=== PATIENT | female | born 1995 | race Caucasian/White ===

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

== ENCOUNTER 2017-01-22 00:57 | Emergency (ER) | payer MEDICAID ==
[~2017-01-22] VITALS: Ht 160 cm; Wt 53.1 kg
[2017-01-22 03:34] LABS: BASOPHIL % 0.1 % (0-2); PLATELET COUNT 193 x10^3mcL (130-400)
[2017-01-22 03:35] LABS: microscopic required? YES; urine erythrocyte NEGATIVE (NEGATIVE)
[2017-01-22 03:39] LABS: CALCIUM 9.1 mg/dL (8.5-10.1); CARBON DIOXIDE 25.9 mmol/L (21-32); CHLORIDE SERUM 103 mmol/L (98-107); CREATININE SERUM 0.5 mg/dL (0.6-1.0); GFR1 > 60 mL/min; GLUCOSE SERUM 99 mg/dL (74-106); POTASSIUM SERUM 3.6 mmol/L (3.5-5.1); SODIUM SERUM 138 mmol/L (136-145)
[2017-01-22 03:44] LABS: ALBUMIN 3.7 g/dL (3.4-5.0); ALKALINE PHOSPHATASE 65 U/L (46-116); ALT/SGPT 15 U/L (14-59); AST/SGOT 15 U/L (15-37); TOTAL PROTEIN, SERUM 7.1 g/dL (6.4-8.2)
[2017-01-22 05:44] VITALS: BP 116/77
== END 2017-01-22 05:44 | disposition home or self-care (01) ==
LOC: ED 00:57
PROVIDERS: Emergency Medicine
DX: O20.0 Threatened abortion (principal); Z3A.08 8 weeks gestation of pregnancy; G43.909 Migraine, unspecified, not intractable, without status migrainosus

== ENCOUNTER 2017-03-17 19:48 | Emergency (ER) | payer MEDICAID ==
[2017-03-17 21:20] LABS: BASOPHIL % 0.3 % (0-2); PLATELET COUNT 223 x10^3mcL (130-400); RED CELL DISTRIBUTION WIDTH 14.1 % (11.5-14.5)
[2017-03-17 21:20] LABS: UA SPECIFIC GRAVITY >=1.030 (1.005-1.035); microscopic required? YES; urine erythrocyte 3+ (NEGATIVE)
[2017-03-17 22:33] VITALS: BP 127/71
[2017-03-19 04:19] LABS: RAPID PLASMA REAGIN Non Reactive (Non Reactive)
== END 2017-03-17 22:33 | disposition home or self-care (01) ==
LOC: ED 19:48
PROVIDERS: Emergency Medicine
DX: O03.9 Complete or unspecified spontaneous abortion without complication (principal); G43.909 Migraine, unspecified, not intractable, without status migrainosus
CPT/HCPCS: 36415; 87491; 87591; J0696; J1885; Q0162

== ENCOUNTER 2017-04-06 10:55 | Emergency (ER) | payer MEDICAID ==
[~2017-04-06] VITALS: Ht 157.5 cm; Wt 50.0 kg
[2017-04-06 13:51] LABS: CALCIUM 9.1 mg/dL (8.5-10.1); CARBON DIOXIDE 26.4 mmol/L (21-32); CHLORIDE SERUM 106 mmol/L (98-107); CREATININE SERUM 0.6 mg/dL (0.6-1.0); GFR1 > 60 mL/min; GLUCOSE SERUM 87 mg/dL (74-106); POTASSIUM SERUM 3.7 mmol/L (3.5-5.1); SODIUM SERUM 140 mmol/L (136-145)
[2017-04-06 13:52] LABS: BASOPHIL % 0.4 % (0-2); PLATELET COUNT 275 x10^3mcL (130-400); RED CELL DISTRIBUTION WIDTH 13.5 % (11.5-14.5)
[2017-04-06 14:07] LABS: ALBUMIN 3.4 g/dL (3.4-5.0); ALKALINE PHOSPHATASE 68 U/L (46-116); ALT/SGPT 17 U/L (14-59); AMYLASE 39 U/L (25-115); AST/SGOT 14 U/L (15-37); BILIRUBIN TOTAL 0.4 mg/dL (0.20-1.00); LIPASE 98 IU/L (73-393); TOTAL PROTEIN, SERUM 7.5 g/dL (6.4-8.2)
[2017-04-06 16:10] VITALS: BP 108/65
== END 2017-04-06 16:10 | disposition home or self-care (01) ==
LOC: ED 10:55
PROVIDERS: Emergency Medicine
DX: K52.9 Noninfective gastroenteritis and colitis, unspecified (principal); N83.201 Unspecified ovarian cyst, right side; G43.909 Migraine, unspecified, not intractable, without status migrainosus
CPT/HCPCS: 83880; 87046; 87046-59; J7030

== ENCOUNTER 2017-04-28 09:11 | Inpatient (IN) | payer MEDICAID ==
[~2017-04-28] VITALS: Ht 160 cm; Wt 72.6 kg
[2017-04-28 11:00] LABS: PLATELET COUNT 222 x10^3mcL (130-400); RED CELL DISTRIBUTION WIDTH 13.1 % (11.5-14.5)
[2017-04-28 11:13] LABS: CALCIUM 8.9 mg/dL (8.5-10.1); CARBON DIOXIDE 21.2 mmol/L (21-32); CHLORIDE SERUM 103 mmol/L (98-107); CREATININE SERUM 0.7 mg/dL (0.6-1.0); GFR1 > 60 mL/min; GLUCOSE SERUM 117 mg/dL (74-106); POTASSIUM SERUM 3.4 mmol/L (3.5-5.1); SODIUM SERUM 137 mmol/L (136-145)
[2017-04-28 11:17] LABS: ALBUMIN 3.5 g/dL (3.4-5.0); ALKALINE PHOSPHATASE 66 U/L (46-116); ALT/SGPT 16 U/L (14-59); AST/SGOT 16 U/L (15-37); LIPASE 80 IU/L (73-393); TOTAL PROTEIN, SERUM 7.4 g/dL (6.4-8.2)
[2017-04-28 11:24] LABS: BAND NEUTROPHIL 6 % (0-10); MONOCYTE 2 % (0-7); SEGMENTED NEUTROPHILS 90 % (37-75); rbc morphology (normal/abnorm) NORMAL (NORMAL)
[2017-04-28 14:53] LABS: MAGNESIUM 1.8 mg/dL (1.8-2.4); PHOSPHOROUS 2.8 mg/dL (2.5-4.9)
[2017-04-28 15:00] LABS: FREE T4 1.09 ng/dL (0.76-1.46); FREE THYROXINE INDEX 2.7 ug/dL (1.4-4.5); T4(THYROXINE) 7.5 ug/dL (4.7-13.3)
[2017-04-28 15:09] LABS: T3 TOTAL 0.8 ng/mL
[2017-04-28 15:13] LABS: CHOLESTEROL/HDL RATIO 2.3
[2017-04-28 15:48] VITALS: BP 122/79
[2017-04-28 15:50] VITALS: Ht 160 cm; Wt 72.6 kg
[2017-04-28 18:39] VITALS: BP 112/63
[2017-04-28 21:53] VITALS: BP 94/47
[2017-04-28 22:04] VITALS: BP 100/54
[2017-04-29 03:36] LABS: UA SPECIFIC GRAVITY 1.015 (1.005-1.035); microscopic required? YES; urine erythrocyte TRACE (NEGATIVE)
[2017-04-29 03:43] LABS: AMPHETAMINE QUAL UR NONE DETECTED (NEG <=1000)
[2017-04-29 06:35] VITALS: BP 102/52
[2017-04-29 07:13] LABS: BASOPHIL % 0.3 % (0-2); PLATELET COUNT 187 x10^3mcL (130-400); RED CELL DISTRIBUTION WIDTH 13.9 % (11.5-14.5)
[2017-04-29 07:33] LABS: CALCIUM 8.1 mg/dL (8.5-10.1); CARBON DIOXIDE 22.5 mmol/L (21-32); CHLORIDE SERUM 112 mmol/L (98-107); CREATININE SERUM 0.6 mg/dL (0.6-1.0); GFR1 > 60 mL/min; GLUCOSE SERUM 99 mg/dL (74-106); MAGNESIUM 1.8 mg/dL (1.8-2.4); PHOSPHOROUS 2.6 mg/dL (2.5-4.9); POTASSIUM SERUM 3.8 mmol/L (3.5-5.1); SODIUM SERUM 142 mmol/L (136-145)
[2017-04-29 09:34] LABS: IRON 13 ug/dL (50-170); TOTAL IRON BINDING CAPACITY 208 ug/dL (250-450)
[2017-04-29 09:48] LABS: RED BLOOD CELLS 3.45 M/mm3 (4.10-5.10)
[2017-04-29 09:55] VITALS: BP 121/70
[2017-04-29 11:55] VITALS: BP 118/63
[2017-04-29 17:00] VITALS: BP 109/63
[2017-04-29 22:56] VITALS: BP 109/64
[2017-04-30 05:19] VITALS: BP 108/61
[2017-04-30 06:50] LABS: BASOPHIL % 0.4 % (0-2); PLATELET COUNT 196 x10^3mcL (130-400); RED CELL DISTRIBUTION WIDTH 14.3 % (11.5-14.5)
[2017-04-30 06:52] LABS: CALCIUM 8.9 mg/dL (8.5-10.1); CHLORIDE SERUM 112 mmol/L (98-107); CREATININE SERUM 0.6 mg/dL (0.6-1.0); GFR1 > 60 mL/min; GLUCOSE SERUM 94 mg/dL (74-106); PHOSPHOROUS 3.5 mg/dL (2.5-4.9); POTASSIUM SERUM 3.8 mmol/L (3.5-5.1); SODIUM SERUM 144 mmol/L (136-145)
[2017-04-30 10:28] VITALS: BP 103/53
[2017-04-30 13:34] VITALS: BP 105/57
[2017-04-30 18:01] VITALS: BP 108/56
[2017-04-30 21:34] VITALS: BP 130/75
[2017-05-01 05:27] VITALS: BP 118/70
[2017-05-01 10:01] VITALS: BP 106/53
[2017-05-01] MEDS ORDERED: FER300 PO (12:05)
[2017-05-01] MEDS ORDERED: ACETAMINOPHEN-H1 TA1 PO (12:06)
[2017-05-01] MEDS ORDERED: ELA10 PO (12:06)
[2017-05-01] MEDS ORDERED: LAC PO (12:08)
[2017-05-01] MEDS ORDERED: VANCOCIN125 MG PO ×2 (12:09→12:24)
[2017-05-01 12:43] VITALS: BP 106/53
== END 2017-05-01 13:15 | disposition home or self-care (01) | DRG 720 ==
LOC: ED 09:11 → DU 14:13 → MU 05-01 09:05
PROVIDERS: Emergency Medicine; Family Medicine
DX: A41.9 Sepsis, unspecified organism (principal); A04.72 Enterocolitis due to Clostridium difficile, not specified as recurrent; E87.6 Hypokalemia; N83.201 Unspecified ovarian cyst, right side; D64.9 Anemia, unspecified; E66.3 Overweight; Z68.28 Body mass index [BMI] 28.0-28.9, adult
CPT/HCPCS: 84439; 87046; 87046-59; J0696; J1885; J2405; J2916; J3480; J3490; J7030; Q0092